=== PATIENT | female | born 1975 | race Two or more races ===

== ENCOUNTER 2020-08-22 11:19 | Emergency (ER) | payer BC ==
[~2020-08-22] VITALS: Ht 154.9 cm; Wt 98.1 kg
[2020-08-22 12:45] VITALS: BP 124/74
== END 2020-08-22 12:47 | disposition home or self-care (01) ==
LOC: ED 12:29
DX: S29.011A Strain of muscle and tendon of front wall of thorax, initial encounter (principal); R07.89 Other chest pain; R06.02 Shortness of breath; I10 Essential (primary) hypertension; X58.XXXA Exposure to other specified factors, initial encounter; Y93.89 Activity, other specified; Y92.89 Other specified places as the place of occurrence of the external cause; Y99.8 Other external cause status
CPT/HCPCS: 93005; 99283